=== PATIENT | female | born 1985 | race Two or more races ===

== ENCOUNTER 2019-03-14 20:59 | Inpatient (IN) | payer MEDICAID | END 2019-03-18 18:15 | disposition home or self-care (01) | LOC: ER 20:59 → OVERFLOW 21:00 → WEST WING 03-15 04:34 | DX: N39.0 Urinary tract infection, site not specified (principal); E83.59 Other disorders of calcium metabolism; N13.30 Unspecified hydronephrosis; N13.9 Obstructive and reflux uropathy, unspecified; N23 Unspecified renal colic; E66.9 Obesity, unspecified; D72.829 Elevated white blood cell count, unspecified; N18.9 Chronic kidney disease, unspecified; Z22.322 Carrier or suspected carrier of Methicillin resistant Staphylococcus aureus; N29 Other disorders of kidney and ureter in diseases classified elsewhere ==

== ENCOUNTER 2019-07-11 17:06 | Emergency (ER) | payer MEDICAID ==
[~2019-07-11] VITALS: Ht 149.9 cm; Wt 74.8 kg
[2019-07-11] MEDS ORDERED: SODIUM CHLORIDE 0.9% 2,250 ML IV ONE (21:15)
[2019-07-11] MEDS ORDERED: PIPERACILLIN-TAZOB 3.375GM 100 ML IV SCH (21:22)
[2019-07-11 22:00] LABS: Basophils # (auto) 0 uL; Basophils % (auto) 0.5 % (0.0-2.0); Eosinophils # (auto) 0.2 uL; Eosinophils % (auto) 2.1 % (0.0-7.0); Hematocrit 39.1 % (36.0-46.0); Hemoglobin 12.8 g/dL (12.2-16.2); Lymphocytes # (auto) 2.2 uL; Lymphocytes % (auto) 24.6 % (10.0-50.0); Mean Corpuscular Hemoglobin 27.3 pg (28.0-32.0); Mean Corpuscular Hgb Conc. 32.6 g/dL (32.0-36.0); Mean Corpuscular Volume 83.7 fL (80.0-100.0); Monocytes # (auto) 0.7 uL; Monocytes % (auto) 8.4 % (0.0-12.0); Neutrophils # (auto) 5.7 uL; Neutrophils % (auto) 64.4 % (37.0-80.0); Platelet Count (auto) 308 10^3/uL (140-450); Red Blood Cells 4.67 10^6/uL (4.0-5.20); White Blood Cell 8.8 10^3/uL (4.4-10.8)
[2019-07-11 22:23] LABS: Albumin 3.7 g/dL (3.4-5.0); Anion Gap 10 (5-15); Blood Urea Nitrogen 14 mg/dL (7-18); Carbon Dioxide 22 mmol/L (21-32); Chloride 107 mmol/L (98-107); Glucose 97 mg/dL (74-106); Potassium 3.6 mmol/L (3.5-5.1); Sodium 139 mmol/L (136-145)
[2019-07-11 22:24] LABS: Alanine Aminotransferase 27 U/L (13-56); Aspartate Aminotransferase 11 U/L (15-37); BUN/Creatinine Ratio 15.4; GFR African American 90 mL/min; GFR Non-African American 75 mL/min
[2019-07-11 22:30] LABS: Alkaline Phosphatase 81 U/L (45-117); Bilirubin, Total 0.2 mg/dL (0.2-1.0); Creatine Kinase IFCC 52 U/L (26-192); Total Protein 8.5 g/dL (6.4-8.2)
[2019-07-11 22:36] LABS: INR 0.95 (0.9-1.15); Partial Thromboplastin Time 26.5 sec (23.64-32.05)
[2019-07-11] MEDS ORDERED: VANCOMYCIN PER PHARMACY 0 MG IV SCH (22:45)
[2019-07-12] MEDS ORDERED: PIPERACILLIN-TAZOB 3.375GM 100 ML IV ONE ×2 (00:05)
[2019-07-12] MEDS ORDERED: ACETAMINOPHEN 325 MG TAB PO ONE (00:15)
[2019-07-12] MEDS ORDERED: VANCOMYCIN 1GM/250ML 250 ML IV ONE ×2 (00:34)
[2019-07-12 00:54] LABS: Urine Bacteria MOD /hpf (None Seen); Urine Blood TRACE /uL (Negative); Urine Specific Gravity 1.011 (1.001-1.035); Urine WBC 118 /hpf (0 - 5)
[2019-07-12 01:02] VITALS: BP 100/65
[2019-07-12 01:06] LABS: Lactic Acid w/Reflex 2.1 mmol/L (0.4-2.0)
== END 2019-07-12 01:49 | disposition home or self-care (01) ==
LOC: ER 17:06
DX: T81.49XA Infection following a procedure, other surgical site, initial encounter (principal); N13.6 Pyonephrosis; Y83.9 Surgical procedure, unspecified as the cause of abnormal reaction of the patient, or of later complication, without mention of misadventure at the time of the procedure; Y92.89 Other specified places as the place of occurrence of the external cause
CPT/HCPCS: 36415; 36600; 74176; 80053; 81001; 82550; 82805; 83605; 84484; 84702; 85025; 85379; 85384; 85610; 85730; 87040; 87086; 87088; 87186; 99284; J2543; J3370